=== PATIENT | female | born 2000 | race Caucasian/White ===

== ENCOUNTER 2020-03-05 18:54 | Emergency (ER) | payer OTHER ==
[2020-03-05 19:00] VITALS: BP 125/68
--- NOTE | 2020-03-05 19:22 | ER Document Report ---
ED Medical Screen (RME) - General Chief Complaint: Abdominal Pain Stated Complaint: ABDOMINAL PAIN Time Seen by Provider: 03/05/20 19:17 Primary Care Provider: SAHRA HENDERSON FNP [Primary Care Provider] - Follow up as needed Mode of Arrival: Ambulatory Information source: Patient Notes: 19-year-old female presented to ED for complaint of abdominal pain to the right upper and lower abdomen. She has had her gallbladder removed in April 2019. She does have the laparoscopy scars from this removal. She states she has had stools every day for the last 3 days some of them hard some of them have been soft. Bowel sounds are active there is a lot of gas audible on the right abdomen. We will get blood and urine at this time. She states Wednesday she took ibuprofen Wednesday she took stool softeners and today she is taking Tums for this discomfort. States her last menstrual period was about 3 to 4 weeks ago. He is not on control medications. I have greeted and performed a rapid initial assessment of this patient. A comprehensive ED assessment and evaluation of the patient, analysis of test results and completion of medical decision making process will be conducted by an additional ED providers. TRAVEL OUTSIDE OF THE [place] IN LAST 30 DAYS: No Physical Exam - Vital signs Vitals: Temp Pulse Resp BP Pulse Ox 98.2 F 77 20 125/68 99 03/04/20 18:58 03/04/20 18:58 03/04/20 18:58 03/04/20 18:58 03/04/20 18:58 Course - Vital Signs Vital signs: Temp Pulse Resp BP Pulse Ox 98.2 F 77 20 125/68 99 03/04/20 18:58 03/04/20 18:58 03/04/20 18:58 03/04/20 18:58 03/04/20 18:58 Doctor's Discharge - Discharge Referrals: SAHRA HENDERSON FNP [Primary Care Provider] - Follow up as needed
[2020-03-05] MEDS ORDERED: HYDROCODONE/ACETAMINOPHEN 5-325 MG TABLET PO ONE (19:57)
[2020-03-05 20:30] LABS: ABSOLUTE EOSINOPHILS # (AUTO) 0.2 10^3/uL (0.0-0.6); ABSOLUTE LYMPHOCYTES (AUTO) 3.4 10^3/uL (0.5-4.7); ABSOLUTE MONOCYTES (AUTO) 0.5 10^3/uL (0.1-1.4); ABSOLUTE NEUT (AUTO) 4.6 10^3/uL (1.7-8.2); BASOPHILS % (AUTO) 0.5 % (0-2); EOSINOPHILS % (AUTO) 1.8 % (0-6); HEMOGLOBIN 12.6 g/dL (12.0-15.5); LYMPHOCYTES % (AUTO) 39.2 % (13-45); MEAN CORPUSCULAR HEMOGLOBIN 29.8 pg (27.0-33.4); MEAN CORPUSCULAR VOLUME 88 fl (80-97); MONOCYTES % (AUTO) 5.3 % (3-13); PLATELET COUNT 225 10^3/uL (150-450); RED BLOOD COUNT 4.22 10^6/uL (3.72-5.28); RED CELL DISTRIBUTION WIDTH 12.3 % (11.5-14.0); SEGMENTED NEUTROPHILS % (AUTO) 53.2 % (42-78); TOTAL CELLS COUNTED % (AUTO) 100 %; WHITE BLOOD COUNT 8.7 10^3/uL (4.0-10.5)
[2020-03-05 20:38] LABS: APPEARANCE,URINE SLIGHTLY-CLOUDY; BILIRUBIN,URINE NEGATIVE (NEGATIVE); COLOR,URINE YELLOW; GLUCOSE, URINE NEGATIVE (NEGATIVE); KETONES,URINE NEGATIVE (NEGATIVE); LEUKOCYTE ESTERASE,URINE SMALL (NEGATIVE); NITRITE,URINE NEGATIVE (NEGATIVE); PROTEIN,URINE NEGATIVE (NEGATIVE); URINE SPECIFIC GRAVITY 1.023
[2020-03-05 20:50] LABS: ALBUMIN 4.5 g/dL (3.5-5.0); ALKALINE PHOSPHATASE 56 U/L (38-126); ANION GAP 6 (5-19); ASPARTATE AMINO TRANSFERASE 25 U/L (14-36); BILIRUBIN,TOTAL 0.5 mg/dL (0.2-1.3); BLOOD UREA NITROGEN 13 mg/dL (7-20); CALCIUM 9.6 mg/dL (8.4-10.2); CARBON DIOXIDE 31 mmol/L (22-30); CHLORIDE 103 mmol/L (98-107); GLUCOSE 108 mg/dL (75-110); POTASSIUM 4.3 mmol/L (3.6-5.0); TOTAL PROTEIN 7.4 g/dL (6.3-8.2)
[2020-03-05] MEDS ORDERED: MAGNESIUM CITRATE 296 ML BOTTLE PO ONE (21:23)
--- NOTE | 2020-03-05 21:25 | ER Document Report ---
ED GI/ - General Chief Complaint: Abdominal Pain Stated Complaint: ABDOMINAL PAIN Time Seen by Provider: 03/05/20 19:17 Primary Care Provider: SAHRA HENDERSON FNP [Primary Care Provider] - Follow up in 3-5 days Mode of Arrival: Ambulatory Information source: Patient Notes: 19-year-old female presented to ED for complaint of abdominal pain to the right upper and lower abdomen. She has had her gallbladder removed in April 2019. She does have the laparoscopy scars from this removal. She states she has had stools every day for the last 3 days some of them hard some of them have been soft. Bowel sounds are active there is a lot of gas audible on the right a bdomen. We will get blood and urine at this time. She states Wednesday she took ibuprofen Wednesday she took stool softeners and today she is taking Tums for this discomfort. States her last menstrual period was about 3 to 4 weeks ago. She is not on control. Her labs are negative and her abdominal x-ray shows constipation. She has been treated with a bottle of mag citrate and she will take MiraLAX for the next week. She has stated that she will follow up with her primary care doctor if she has any more concerns. TRAVEL OUTSIDE OF THE [place] IN LAST 30 DAYS: No - HPI Patient complains to provider of: Abdominal pain Onset: Other - 2 to 3 days Timing/Duration: Intermittent Quality of pain: Sharp Severity at maximum: Moderate Severity in ED: Mild Pain Level: 1 Location: Other - Generalized at times right at times middle Vaginal bleeding (Compared to normal period): None LMP: 3 weeks ago Associated symptoms: Other Exacerbated by: Movement, Walking Relieved by: Denies Similar symptoms previously: Yes Recently seen / treated by doctor: No Past Medical History - General Information source: Patient - Social History Smoking Status: Never Smoker Frequency of alcohol use: None Drug Abuse: None Lives with: Family Family History: Reviewed & Not Pertinent Patient has suicidal ideation: No Patient has homicidal ideation: No - Past Medical History Cardiac Medical History: Reports: None Pulmonary Medical History: Reports: None EENT Medical History: Reports: None Neurological Medical History: Reports: None Endocrine Medical History: Reports: None Renal/ Medical History: Reports: Hx Ovarian Cysts Malignancy Medical History: Reports: None GI Medical History: Reports: None Musculoskeletal Medical History: Reports None, Reports Hx Musculoskeletal Deformity Skin Medical History: Reports None Psychiatric Medical History: Reports: None Traumatic Medical History: Reports: None Infectious Medical History: Reports: None Past Surgical History: Reports: Hx Cholecystectomy, Hx Orthopedic Surgery - Carranza rods Physical Exam - Vital signs Vitals: Temp Pulse Resp BP Pulse Ox 98.2 F 77 20 125/68 99 03/04/20 18:58 03/04/20 18:58 03/04/20 18:58 03/04/20 18:58 03/04/20 18:58 Course - Re-evaluation Re-evalutation: 03/05/20 21:44 Discussed x-rays and labs with patient written report of x-rays and labs given to patient. Patient was discharged home after she was given a bottle of mag citrate and instructed to use MiraLAX daily for the least the next week. Patient was also in courage to increase her fluid intake and her activity. Patient verbalized understanding and agreement with treatment plan and patient was discharged home. - Vital Signs Vital signs: Temp Pulse Resp BP Pulse Ox 98.2 F 77 20 125/68 99 03/04/20 18:58 03/04/20 18:58 03/04/20 18:58 03/04/20 18:58 03/04/20 18:58 - Laboratory Results Result Diagrams: 03/05/20 19:56 03/05/20 19:56 Laboratory Results Interpreted: 03/05/20 03/05/20 19:56 19:56 Carbon Dioxide 31 H Urine Urobilinogen 2.0 H Ur Leukocyte Esterase SMALL H Critical Laboratory Results Reviewed: No Critical Results - Radiology Results Critical Radiology Results Reviewed: No Critical Results Discharge - Discharge Clinical Impression: Constipation Qualifiers: Constipation type: unspecified constipation type Qualified Code(s): K59.00 - Constipation, unspecified Condition: Stable Disposition: HOME, SELF-CARE Additional Instructions: ABDOMINAL PAIN: There are many causes of abdominal pain. Pain can mean a serious problem requiring surgery (such as appendicitis). It can also be an innocent problem that goes away on its own (such as a viral infection). Often, time must pass to determine the cause of pain. The physician does not feel that hospitalization is necessary, at present. Things may change within the next 24 hours. Call the doctor or come back for re- examination if any problems occur, such as: (1) Pain that becomes more severe, steady, or becomes concentrated in one specific area. Also, pain that is more severe with movement or coughing. (2) Vomiting that persists or becomes more frequent. (3) Blood in the vomitus, urine, or bowel movements. Blood in the stool may have a tarry or black appearance. (4) Shaking chills or fever greater than 100 degrees F. (5) The abdomen becomes more distended or swollen. (6) Bowel movements cease. (7) Failure to improve as expected. NORMAL EXAM AND WORKUP: At this time, your examination and workup show no significant abnormality. No significant abnormal physical findings are noted. All laboratory, EKG, and imaging (x-ray, CT scans, ultrasound) studies that were ordered show no significant abnormality. Although your examination and all studies that were ordered showed no significant abnormal finding, there are no examinations and no studies that are 100% accurate. There is always the possibility that some abnormality could exist and not be detected with physical examination or within the limits and ca pabilities of laboratory and other studies. You should return or follow up as you were instructed on your visit today for further evaluation if your symptoms do not resolve. CONSTIPATION: Constipation is a common problem. It is especially likely as you get older. Constipation is a common cause of abdominal pain, but sometimes causes no symptoms at all. Causes of constipation include certain medications, dehydration, diets, inactivity, and low-fiber intake. Rarely, it can be a sy mptom of underlying disease. The physician has evaluated you for this. Avoid constipation by eating a diet high in fiber, fruits, and vegetables. Drink plenty of liquids. Get regular exercise. If possible, avoid constipating medicines like narcotic pain medication. Some vitamin tablets can cause constipation. Stool softeners may be needed for difficult cases. An excellent stool softener is Konsyl which is available at [employer], and [facility] drug store. Just add a teaspoon to a glass of pineapple or orange juice daily or twice a day if needed. Laxatives are useful for occasional constipation. You should use them only when necessary. Too-frequent use can make your bowels dependent on them. Some over the counter laxatives available without prescription are: Milk of Magnesia, 1-2 tablespoons twice a day Dulcolax, 5 mg pill or 10 mg suppository. Citrate of Magnesia, 4-5 ounces a day for a day or two For acute constipation, Fleet's Enemas and Dulcolax suppositories are helpful. Chronic, termite treater helper use of laxatives or enemas is not a good idea. Your bowel may become dependant on them. You do not need to have a bowel movement every day. Many people do fine with a bowel movement every three or four days. You should call your doctor or return for re-evaluation if you pass blood in the stool, or if you develop fever or increasing abdominal pain. FOLLOW-UP CARE: If you have been referred to a physician for follow-up care, call the physicians office for an appointment as you were instructed or within the next two days. If you experience worsening or a significant change in your symptoms, notify the physician immediately or return to the Emergency Department at any time for re-evaluation. Referrals: SAHRA HENDERSON FNP [Primary Care Provider] - Follow up in 3-5 days
--- NOTE | 2020-03-05 21:38 | RADIOLOGY REPORT (SQ) ---
EXAM DESCRIPTION: XR ABDOMEN SUPINE AND ERECT WITH CHEST (ABD ACUTE SERIES) COMPLETED DATE/TME: 03/05/2020 21:11 CLINICAL HISTORY: 19 years, Female, Abdominal pain COMPARISON: None. TECHNIQUE: Three view study of the chest abdomen and pelvis. FINDINGS: Chest x-ray demonstrates extensive hardware in the thoracic spine. Very minimal scoliosis. Cardiomediastinal silhouette is not enlarged. No acute lung or pleural abnormalities. No evidence for subdiaphragmatic free air. Supine and upright views of the abdomen demonstrate mild diffuse increased stool especially in the pelvis. Mild gastric dilatation. No suspicious bowel dilatation or soft tissue abnormality. Surgical clips in the right abdomen. IMPRESSION: 1. Gastric distention. Increased colonic stool. No suspicious small bowel obstruction.
== END 2020-03-05 21:42 | disposition home or self-care (01) ==
LOC: ER 18:54
DX: K59.00 Constipation, unspecified (principal); R10.11 Right upper quadrant pain; R10.31 Right lower quadrant pain
CPT/HCPCS: 99284; 36415; 83690; 84703; 85025; 80053; 81001; 74022; J3490